=== PATIENT | female | born 1945 | race Caucasian/White ===

== ENCOUNTER → 2017-10-24 | Day surgery (SDC) | payer OTHER ==
[~2017-10-24] MED LIST: 0.9% SODIUM CHLORIDE 10 ML SYRINGE IVP PRN; AMLO5TAB4 PO; FLUT16H NASAL; LISI-661 PO; LORA10TA7 PO; MELO-107 PO; METOPROLOL TARTRATE 50 MG TABLET PO PRN; SIMV20TA6 PO
== END | disposition home or self-care (01) ==
LOC: SURGERY 07:51 → EDSTATUS 10:00
PROVIDERS: ATTEND Internal Medicine Cardiovascular Disease
DX: I25.89 Other forms of chronic ischemic heart disease (principal); Z53.9 Procedure and treatment not carried out, unspecified reason; E78.00 Pure hypercholesterolemia, unspecified; F17.210 Nicotine dependence, cigarettes, uncomplicated; F10.21 Alcohol dependence, in remission; Z98.890 Other specified postprocedural states; Z79.899 Other long term (current) drug therapy; Z98.41 Cataract extraction status, right eye; Z98.42 Cataract extraction status, left eye